=== PATIENT | female | born 1995 | race Caucasian/White ===

== ENCOUNTER → 2018-08-09 14:01 | Outpatient (CLI) | payer MEDICAID, SELFPAY ==
[2017-03-27 07:16] VITALS: BMI 21.1
[2018-08-13 15:11] LABS: HPV Reflexed? NOT INDICATED
== END ==
PROVIDERS: Visit Provider Obstetrics & Gynecology
DX: Z12.4 Encounter for screening for malignant neoplasm of cervix (principal)
CPT/HCPCS: 88175; G0145

== ENCOUNTER 2018-10-20 13:29 | Emergency (ER) | payer MEDICAID, SELFPAY ==
[2018-10-20 13:31] VITALS: BP 138/89; PULSE 146; RESP 22; TEMP 36.6; O2SAT 100; BMI 24.1
--- NOTE | 2018-10-20 13:37 | EKG12_ITS ---
Test Reason : ANXIETY Blood Pressure : / mmHG Vent. Rate : 122 BPM Atrial Rate : 122 BPM P-R Int : 132 ms QRS Dur : 082 ms QT Int : 336 ms P-R-T Axes : 076 062 037 degrees QTc Int : 478 ms Sinus tachycardia Nonspecific ST abnormality Abnormal ECG Confirmed by CARLITO FELIX, GWEN ([id number]), city editor MIRIAN ALCAZAR ([id number]) on 10/24/2018 1:33:04 PM Referred By: JACQUES Confirmed By:GWEN ESTEBAN MD
--- NOTE | 2018-10-20 13:39 | ED.DCSUM_ITS ---
History of Present Illness Chief Complaint: Anxiety Detail of Chief Complaint: Tingling Informant: Patient Onset: Today Context: Gradual Onset Timing: Continuous Quality: Tingling and cramping Location: Face and extremities Current Severity: Moderate Maximum Severity: Moderate Associated Symptoms: Patient denies chest pain. She does have palpitations. Narrative: Patient states she was out drinking last night. She got up around noon today and had nausea and vomiting. Following this she started feeling very anxious as if her heart was racing. She states she has tingling around her mouth, hands, and feet. Prior similar symptoms: No Past Medical History - Allergies and Home Meds Allergies/Adverse Reactions: Allergies No Known Allergies Allergy (Verified 10/20/18 13:31) Primary Care Physician: Care Physician,No Primary [Primary Care Provider] - Past Medical History: None Smoking Status: Never smoker Review of Systems General: Denies: Chills, Fever Cardiovascular: Reports: Palpitations, Heart racing Respiratory: Denies: Dyspnea Gastrointestinal: Reports: Nausea, Vomiting. Denies: Abdominal pain Musculoskeletal: Reports: Myalgias Psych: Reports: Anxiety Physical Exam Vital Signs/Narrative: Vital Signs Temp Pulse Resp BP Pulse Ox 10/20/18 13:31 97.9 F 146 H 22 H 138/89 H 100 General: Well nourished, Well developed ENT: Moist mucous membranes Cardiovascular: Tachycardia Respiratory: No distress, CTA bilaterally Abdomen: Soft, Nontender, Hypoactive bowel sounds Extremities: Nontender, No edema Skin: Normal color Neurological: Alert Psychological: - - Anxious Diagnostic/Tx/Re-eval Abnormal Lab Results 10/20/18 10/20/18 10/20/18 13:45 13:45 13:45 WBC 17.5 H RBC 4.62 Hgb 13.5 Hct 39.7 MCV 85.9 MCH 29.2 MCHC 34.0 RDW 12.5 RDW Differential 39.0 Plt Count 330 MPV 10.0 Immature Gran % (Auto) 0.200 Neut % (Auto) 74.2 H Lymph % (Auto) 18.7 L [place] % (Auto) 5.7 Eos % (Auto) 0.9 Baso % (Auto) 0.3 Absolute Neuts (auto) 13.0 H Absolute Lymphs (auto) 3.28 Total Counted Not Reportable Sodium 140 Potassium 3.7 Chloride 108 H Carbon Dioxide 17.0 L Anion Gap 15 BUN 10 Creatinine 0.96 Estim Creat Clear Calc 69.95 Est GFR (MDRD) Af Amer 94 Est GFR (MDRD) Non-Af 78 BUN/Creatinine Ratio 10.4 Glucose 107 H Calcium 9.5 TSH Serum , Qual NEGATIVE 10/20/18 13:45 WBC RBC Hgb Hct MCV MCH MCHC RDW RDW Differential Plt Count MPV Immature Gran % (Auto) Neut % (Auto) Lymph % (Auto) [place] % (Auto) Eos % (Auto) Baso % (Auto) Absolute Neuts (auto) Absolute Lymphs (auto) Total Counted Sodium Potassium Chloride Carbon Dioxide Anion Gap BUN Creatinine Estim Creat Clear Calc Est GFR (MDRD) Af Amer Est GFR (MDRD) Non-Af BUN/Creatinine Ratio Glucose Calcium TSH 2.02 Serum , Qual - EKG Initial EKG Interpretation: Sinus Tachycardia - Sinus tach at 122 with no acute ischemia. Prior: No Prior - Medical Decision Making Patient was given IV fluids and Phenergan. A nonrebreather mask was placed. Heart rate and respiratory rate both improved. On repeat evaluation patient is resting comfortably. She feels significantly improved and has no further tingling or muscle spasm. She is given p.o. challenge and able to tolerate this. ED Disposition - Plan for ED Patient: Disposition: Home or Assisted Living Diagnosis: Hyperventilation Instructions: Hyperventilation Syndrome Prescriptions: Ondansetron [Zofran Odt] 4 mg PO Q8H PRN PRN #10 tablet PRN Reason: Nausea Referrals: Nany Chanel MD [COURTESY STAFF PHYSICIAN] - As Needed
--- NOTE | 2018-10-20 13:42 | NURSING ---
NO OLD EKGS
[2018-10-20] MEDS: 0.9% Normal Saline 1,000 ML 1000 ML IV (13:43)
[2018-10-20] MEDS: proMETHazine 25 MG/ML Syringe 6.25 MG IV (13:43)
[2018-10-20 13:47] VITALS: BP 142/92; PULSE 125; RESP 20; O2SAT 99
[2018-10-20 13:54] LABS: Absolute Lymphocyte Count 3.28 X10^3/ul (0.83-4.51); Basophil# 0.06 X10^3/uL; Basophil% 0.3 % (0-1); Eosinophil# 0.15 X10^3/uL; Eosinophils% 0.9 % (0-5); Hematocrit 39.7 % (37-47); Hemoglobin 13.5 g/dl (12.0-15.0); Lymphocyte # 3.28 X10^3/ul (4.0); Lymphocyte % 18.7 % (19-41); Mean Corpuscular Hgb 29.2 pg (27.0-32.0); Mean Corpuscular Volume 85.9 fL (81-99); Monocyte# 0.99 X10^3/uL; Monocyte% 5.7 % (0-10); Neutrophil % 74.2 % (47-70); Platelet Count 330 K/mm3 (150-450); RBC Distribution Width CV 12.5 % (11.6-14.6); Red Blood Count 4.62 M/mm3 (4.2-5.4); White Blood Count 17.5 K/mm3 (4.4-11.0)
[2018-10-20 13:55] LABS: POSITIVE COUNT NO; POSITIVE DIFFERENTIAL NO; POSITIVE MORPHOLOGY NO
[2018-10-20 14:04] LABS: Anion Gap 15 (5-15); BUN 10 mg/dL (7-18); BUN/Creat Ratio 10.4 RATIO (10-20); Calcium,Total 9.5 mg/dL (8.5-10.1); Chloride 108 mmol/L (98-107); Creatinine, Serum 0.96 mg/dL (0.55-1.02); EST Glomerular Filtration Rate 78 mL/min (>60); Est Glom Filt Rate - Afr Amer 94 mL/min (>60); Estimated Creatinine Clearance 69.95 ml/min; Glucose 107 mg/dL (74-106); Potassium 3.7 mmol/L (3.5-5.1); Sodium Level 140 mmol/L (136-145)
[2018-10-20 14:20] VITALS: BP 103/68; PULSE 81; RESP 18; O2SAT 99
[2018-10-20 14:22] LABS: Internal QC Validated? YES +Cl - CLEAR BKGD; Pregnancy, Serum, hCG Quali. NEGATIVE Negative
[2018-10-20 14:37] LABS: Thyroid Stim Hormone (TSH) 2.02 uIU/mL (0.358-3.74)
[2018-10-20 15:14] VITALS: BP 97/63; PULSE 82; RESP 14; O2SAT 98
== END 2018-10-20 15:15 | disposition home or self-care (01) ==
PROVIDERS: Emergency Provider Emergency Medicine
DX: R06.4 Hyperventilation (principal)
CPT/HCPCS: 80048; 84443; 84703; 85025; 93005; 96361; 96374; 99284; J7030

== ENCOUNTER 2023-12-16 05:33 | Inpatient (IN) | payer MEDICAID, SELFPAY ==
--- NOTE | 2023-12-15 16:27 | PCM.HP.BLA ---
History and Physical Date of Admission: 12/16/23 Pre-Op History and Physical HPI: The patient is a 28 year old female presenting for pre-operative visit. She is scheduled for , for repeat cs on 12/16/23. Procedure discussed along with risks, benefits and complications. Other alternatives discussed for management. Consent form signed? Yes. 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 aspirin, enteric coated (ASPIRIN, ENTERIC COATED) 81 mg EC tablet Take 81 mg by mouth once daily. ? doxylamine succinate (UNISOM, DOXYLAMINE, ORAL) Take by mouth at bedtime as needed. Takes half tablet at bedtime ? 21/iron fu/folic acid ( COMPLETE ORAL) Take by mouth once daily. No current facility-administered medications for this visit. ALLERGIES: Patient has no known allergies. PERSONAL HISTORY: SOCIAL HISTORY Social History Tobacco Use ? Smoking status: Never ? Smokeless tobacco: Never Vaping Use ? Vaping status: Never Used Substance Use Topics ? Alcohol use: No ? Drug use: No FAMILY HISTORY: FAMILY HISTORY FAMILY HISTORY Problem Relation Age of Onset ? other (schizophrenia) Father ? None Mother ? None Brother ? None Maternal Grandmother ? None Maternal Grandfather ? None Paternal Grandmother ? None Paternal Grandfather REVIEW OF SYMPTOMS: negative except as noted above PHYSICAL EXAMINATION: VITALS: Blood pressure 118/62, weight 67.6 kg (149 lb), last menstrual period 02/02/2023. GENERAL: The patient is well nourished, well hydrated in no acute distress. , The patient is oriented to time, place, and person. NECK: full range of motion ABD: gravid, non tender IMPRESSION: @ 37.6 weeks h/o section PLAN: repeat cs at 39 weeks if no spontaneous labor prior Pt has been counseled on risks/benefits and alternatives of surgery including but not limited to anesthesia, bleeding, infection, injury to pelvic structures including bowel, bladder, ureters and vessels. Pt wishes to proceed with surgery at this time. Risk of transfusion reviewed. Pre and post op instructions reviewed. Consent obtained. I have reviewed and updated past medical and surgical history, medications and allergies Alessia Posey MD
[2023-12-16] VITALS (15 sets, daily range): BP systolic 98–118; BP diastolic 52–82; PULSE 60–110; RESP 12–20; TEMP 36.2–36.7; O2SAT 97–100; BMI 28.0
[2023-12-16] MEDS: Lactated Ringers 1,000 ML 999 ML IV (05:30)
[2023-12-16] MEDS: Lactated Ringers 1,000 ML 150 ML IV (06:00)
[2023-12-16 06:11] LABS: Absolute Neutrophil Count 6.9 X10^3/uL (2.0-7.7); Basophil# 0.05 X10^3/uL; Basophil% 0.5 % (0-1); Eosinophil# 0.11 X10^3/uL; Eosinophils% 1.1 % (0-5); Hematocrit 32.3 % (37-47); Hemoglobin 10.6 g/dL (12.0-15.0); Mean Corp Hgb Conc 32.8 g/dL (32-36); Mean Corpuscular Hgb 28.2 pg (27.0-32.0); Mean Corpuscular Volume 85.9 fL (81-99); Mean Platelet Vol. 10.2 fl (6.2-12.0); Monocyte# 0.95 X10^3/uL; Monocyte% 9.1 % (0-10); NRBC Flagged by Analyzer 0 % (0-5); Neutrophil # 6.85 X10^3/uL (2.7-7.7); Neutrophil % 65.5 % (47-70); Platelet Count 249 K/mm3 (150-450); RBC Distribution Width CV 14.2 % (11.6-14.6); RBC Distribution Width SD 43.9 fl (35.1-43.9); Red Blood Count 3.76 M/mm3 (4.2-5.4); White Blood Count 10.4 K/mm3 (4.4-11.0)
[2023-12-16] MEDS: Sodium Citrate/Citric Acid 30 ML UDC PO (06:12)
[2023-12-16] MEDS: Acetaminophen 500 MG Tablet 1000 MG PO ×3 (06:12→22:02)
--- NOTE | 2023-12-16 07:06 | EX.PCM.OBRPT ---
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 She was then placed in the supine position. She was prepped and draped in the normal sterile fashion. Anesthesia was found to be adequate. At this time a Pfannenstiel skin incision was made with a knife was carried down to the underlying layer of the fascia. The fascial incision was then extended laterally using opposing traction. Attention was then turned to the superior aspect of the fascial edge was grasped with 2 straight Ete clamps tented up and the rectus muscle dissected off sharplty. Rectus muscles were then in the midline bluntly and peritoneum was entered bluntly. Gentle opposing traction was placed. At this time the vesicouterine peritoneum was identified. Scalpel was used to make a uterine incision in a low transverse fashion. The uterus was then entered bluntly gentle opposing traction was placed to extend this incision. Membranes were ruptured clear. Infant's head was brought to the uterine incision was delivered atraumatically. Loose nuchal noted- reduced prior to delivery. Infant was vigorous at delivery and delayed cord clamping performed. Cord was clamped and cut was handed to the waiting nursery team. The Placenta was removed from the uterus. The uterus was then removed from the abdominal cavity. The uterus was cleared of all clots and debris using a lap. At this time the uterine incision was reapproximated using #1 Vicryl in a running locked fashion. Hemostasis was appreciated. Posterior cul-de-sac was then cleared of all clots and debris. Uterus was placed back in the abdominal cavity. Gutters were cleared of all clots and debris. Hemoablast placed on uterine incision. Uterine incision was reevaluated and noted to be of excellent hemostasis. At this time the peritoneum was grasped with Kellys reapproximated using #2 Vicryl suture in a running fashion. Hemoblast placed on rectus. Fascia was then reapproximated using #1 Vicryl in a running fashion. Subcu layer was irrigated with NS, hemoblast placed in subcutaneous layer. reapproximated with #2 0 plain gut suture in an interrupted fashion. Subcu layer was closed using 4-0 Monocryl in a subcu fashion. Dry sterile dressing was applied. Instrument lap needle count correct ?2. Anticipated normal postoperative course. Presentation: Positive for Vertex Amniotic Membrane Rupture Type: Artificial Amniotic Fluid Description: Clear Placental Delivery Description: Expressed Placenta Disposition: [facility] Cord Vessel Description: 3 Vessels Cord Entanglement: Around neck x 1, loose Nuchal Cord Compression: Without compression A Gender: Male (1 minute): 8 (5 minute): 9 Delayed Cord Clamping: Yes Complications Risks of Surgery Discussed w/Patient: Bleeding, Anesthesia Risks, Infection and Injury to surrounding structure(s) including bowel and bladder Complications: none
[2023-12-16] MEDS: Cefazolin 2 GM in 0.9% Normal Saline (100mL Bag) 100 ML IV (07:20)
[2023-12-16] MEDS: Oxytocin 15 Units/NS 250ml 15 UNITS/250 ML IV.SOLN 83 UNITS IV (08:42)
[2023-12-16 08:48] LABS: Syphilis Antibodies Non-reactive
[2023-12-16] MEDS: Ondansetron 4 MG/2 ML Vial IV ×2 (09:00→12:46)
[2023-12-16] MEDS: Ketorolac 30 MG/ML Syringe IV ×3 (09:00→20:07)
[2023-12-16 09:02] LABS: Bacteria 0 SEEN /hpf (None Seen); Mucous, Urine 0 SEEN /hpf (<or=2+); Red Blood Cells-Urine 0 SEEN /hpf (0-5); Squamous Epithelial Cells - UA 0 SEEN /hpf (5-10); White Blood Cells 0 SEEN /hpf (0-5)
[2023-12-16 09:09] LABS: Color, Urine YELLOW (Yellow); Glucose, Dipstick 50 mg/dl (Normal); Ketone-Dipstick Negative (Negative); Leukocyte Esterase-Dipstick Negative /ul (Negative); Nitrite-Dipstick Negative (Negative); Occult Blood-Urine 10 /ul (Negative); Protein-Dipstick 15 mg/dl (Negative); Specific Gravity, Urine 1.015 (1.002-1.030); Urine Bilirubin Dipstick Negative (Negative); Urine Clarity Clear (Clear); Urine Urobilinogen Normal (Normal)
[2023-12-16 09:15] LABS: Amorphous Sediment 1+
--- NOTE | 2023-12-16 09:31 | NURSING ---
Carlotta Remy RN reported off to me at 0715. During bedside shift report, she stated that the patient received an IV bolus of 1000ml LR at admission and her second bag of LR was infusing at 150ml/hr.
[2023-12-16] MEDS: Lactated Ringers 1,000 ML 100 ML IV (11:34)
[2023-12-17 00:02] VITALS: BP 91/58; PULSE 59; RESP 16; TEMP 36.1; O2SAT 98
[2023-12-17] MEDS: Ketorolac 30 MG/ML Syringe IV (02:16)
[2023-12-17] MEDS: 0.9% Saline Lock 10 ML Syringe IV (02:16)
[2023-12-17] MEDS: Acetaminophen 500 MG Tablet 1000 MG PO ×2 (04:03→10:18)
[2023-12-17 04:05] VITALS: BP 104/62; PULSE 80; RESP 16; TEMP 36.2; O2SAT 98
[2023-12-17 06:24] LABS: Hematocrit 29.4 % (37-47); Hemoglobin 9.5 g/dL (12.0-15.0); Mean Corp Hgb Conc 32.3 g/dL (32-36); Mean Corpuscular Hgb 28.4 pg (27.0-32.0); Mean Corpuscular Volume 87.8 fL (81-99); Mean Platelet Vol. 10.3 fl (6.2-12.0); Platelet Count 236 K/mm3 (150-450); RBC Distribution Width CV 14.5 % (11.6-14.6); RBC Distribution Width SD 45.8 fl (35.1-43.9); Red Blood Count 3.35 M/mm3 (4.2-5.4); White Blood Count 17.9 K/mm3 (4.4-11.0)
--- NOTE | 2023-12-17 08:23 | PCM.DC.SUM ---
Providers Date of Admission: 12/16/23 Primary Care Physician: No Primary Care Phys Reason For Visit: SCHEDULED C SECTION/CSECTION DELIVERY Medications at Discharge Home Medications ondansetron 4 mg disintegrating tablet 4 mg PO Q8H PRN PRN Nausea #10 tabs 10/20/18 vit 122-ferrous fumarate 27 mg iron-folic acid 800 mcg tablet ( Multi) 1 tab PO DAILY 12/16/23 acetaminophen 500 mg tablet 1,000 mg (2 x 500 mg) PO Q6H #0 tabs 12/17/23 ibuprofen 600 mg tablet 600 mg PO Q6H #0 tabs 12/17/23 sennosides 8.6 mg-docusate sodium 50 mg tablet (Stimulant Laxative Plus) 1 - 2 tab PO DAILY #0 tabs 12/17/23 Hospital Course Operations section Procedures None Summary of Care Provided Minutes Spent on Discharge: 15 Hospital Course: Patient had section. Hospital course was uneventful. Physical Exam Narrative Dressing is dry and intact Const alert and no apparent distress General Appearance: cooperative and comfortable Exam Limitations: no limitations HEENT normocephalic Eyes General Eye: normal appearance of both eyes Neck full ROM General: normal visual inspection Chest Chest: symmetrical chest wall rise Resp normal respiratory effort and normal air movement Effort and Inspection: symmetric chest movement Auscultation: clear to auscultation bilaterally Cardio regular rate and regular rhythm GI normal to inspection, nondistended, normoactive bowel sounds Back/Spine normal ROM Extremity full ROM and no calf tenderness General Extremity: normal exam except as noted Skin no rashes or lesions noted Wound Narrative: Dressing is dry and intact. Neuro CN's II-XII intact bilaterally Psych mental status grossly normal Weight / BMI Weight Weight: 148 lb 6 oz Body Mass Index (BMI) 28.0 ABG / Lab / Microbiology Data 12/17/23 06:10 Laboratory: Laboratory Results - last 24 hr 12/16/23 05:50: Syphilis Total Ab Non-reactive 12/16/23 08:30: Urine Color YELLOW, Urine Clarity Clear, Urine pH 8.0, Ur Specific [place] 1.015, Urine Protein 15 H, Urine Glucose (UA) 50 H, Urine Ketones Negative, Urine Occult Blood 10 H, Urine Nitrite Negative, Urine Bilirubin Negative, Urine Urobilinogen Normal, Ur Leukocyte Esterase Negative, Urine RBC 0 SEEN, Urine WBC 0 SEEN, Ur Squamous Epith Cells 0 SEEN, Amorphous Sediment 1+, Urine Bacteria 0 SEEN, Urine Mucus 0 SEEN 12/17/23 06:10: WBC 17.9 H, RBC 3.35 L, Hgb 9.5 L, Hct 29.4 L, MCV 87.8, MCH 28.4, MCHC 32.3, RDW Std Deviation 45.8 H, RDW Coeff of Alessandra 14.5, Plt Count 236, MPV 10.3 D/C Instructions Discharge Diet: No restrictions Discharge Activity: May Drive (2 weeks) and May Shower May resume sexual activity in: 6-8 weeks Weight Bearing Status: Weight bearing as tolerated Lifting Restricted to (Lbs): 25 Call your doctor if your incision/area has: Continuous Slow Oozing, Sudden Increased Bleeding, Increased Pain/ Swelling, Increased Redness, Foul Smelling Discharge and Swelling at the incision site Call your doctor if you observe: Fever of 101 or Higher, Numbness or Tingling, Using more than 1 pad per hour, Shortness of breath, Dizziness, Swelling in the ankles, Chest pain, Calf discomfort and Uncontrolled pain Suture Line Care: Avoid Pulling/Pushing Remove Dressing in: 5 days (Remove yourself or call office and schedule appointment for dressing removal.) When: 5 days for dressing removal or 2 weeks for post appointment. Meaningful Use Info Meaningful Use Meaningful Use Diagnoses (Choose all that apply): None applicable Ischemic Stroke Statin Dosing Therapy Reference: STATIN DOSE THERAPY REFERENCE: * Patients > 75 years receive moderate or high dose statin therapy. * Patients 75 years or YOUNGER should receive HIGH intensity statin dose unless contraindicated. You will be required to document reason for non-treatment if statin daily dose does not meet guidelines. HIGH DOSE STATIN THERAPY DAILY Atorvastatin > than or = to 40 mg Rosuvastatin > than or = to 20 mg Amlodipine + Atorvastatin > than or = to 2.5/40 mg Ezetimibe + Simvastatin 10/80 mg Simvastatin 80mg Discharge Plan Admission Admit Date/Time: 12/16/23 05:33 Primary Reason for Your Visit: Labor and Delivery Attending Provider: Alessia Palomino Primary Care Provider: Care Physician,No Primary Discharge Orders/Prescriptions Prescriptions: New sennosides-docusate sodium [Stimulant Laxative Plus] 8.6-50 mg Tablet 1 - 2 tab PO DAILY Qty: 0 0RF acetaminophen 500 mg Tablet 1,000 mg PO Q6H Qty: 0 0RF ibuprofen 600 mg Tablet 600 mg PO Q6H Qty: 0 0RF Continued ondansetron 4 MG tablet 4 mg PO Q8H PRN PRN (Reason: Nausea) Qty: 10 0RF Multi 27-800 mg-mcg tablet 1 tab PO DAILY Discontinued Control 1 tab PO DAILY Referrals / Follow Up: Care Physician,No Primary [Primary Care Provider] - Disposition Disposition (needs filled in before D/C Order can be placed): Home, Self Care
[2023-12-17] MEDS: Ibuprofen 600 MG Tablet PO (08:57)
[2023-12-17 09:01] VITALS: BP 95/68; PULSE 91; RESP 16; TEMP 36.4; O2SAT 98
[2023-12-17] MEDS: Senna/Docusate Sodium 1 Tablet PO (10:18)
[2023-12-17 12:33] VITALS: BP 102/70; PULSE 83; RESP 16; TEMP 36.2; O2SAT 99
== END 2023-12-17 13:30 | disposition home or self-care (01) | DRG 540 ==
PROVIDERS: Admitting Provider Obstetrics & Gynecology; Referring Provider Obstetrics & Gynecology; Visit Provider Obstetrics & Gynecology
PROC: 10D00Z1 Extraction of Products of Conception, Low, Open Approach (ICD-10-PCS; CPT 59514; principal; 2023-12-16 07:00)
DX: O34.219 Maternal care for unspecified type scar from previous cesarean delivery (principal); O69.81X0 Labor and delivery complicated by cord around neck, without compression, not applicable or unspecified; Z37.0 Single live birth; Z3A.39 39 weeks gestation of pregnancy
CPT/HCPCS: 59025; 59050; 81001; 85025; 85027; 86780; 86850; 86900; 86901; 99221; J7120; A4216; G0378; J2405; J3490